=== PATIENT | male | born 1945 | race Caucasian/White ===

== ENCOUNTER 2019-01-13 20:14 | Emergency (ER) | payer MEDICARE, BC, OTHER ==
[2019-01-13] MEDS ORDERED: Acetaminophen/HYDROcodone 325-5 MG Tab PO ONE (21:28)
[2019-01-13] MEDS ORDERED: Sodium Chloride 0.9% 10 ML Syringe FLUSH PRN (21:28)
[2019-01-13] MEDS ORDERED: Sodium Chloride 0.9% 2.5 ML Syringe FLUSH PRN (21:28)
--- NOTE | 2019-01-13 21:33 | EDM.PDOC ---
ED HPI GENERAL MEDICAL PROBLEM - General Chief Complaint: General Stated Complaint: BOIL ON TESTICLES Time Seen by Provider: 01/13/19 21:09 - History of Present Illness INITIAL COMMENTS - FREE TEXT/NARRATIVE: HISTORY AND PHYSICAL: History of present illness: The patient is a 73-year-old male with a history of oxygen dependent COPD insulin requiring diabetes hyperlipidemia who follows at the [place] [facility] and presents with a swollen area/boil underneath his testicles that is been there for the last 2 weeks. It is not had any drainage and he and the are concerned because it seems to be more painful. They contacted the [place] [facility] who said that he should come here for evaluation. He has had no change in his other systemic issues and has no abdominal pain no testicular pain or swelling no urinary issues no bowel disturbances and no abdominal complaints. He said no fevers chills chest pain or new shortness of breath. He has not noticed any drainage from the area. The patient is incontinent and normally wears a diaper and said that she has noticed some dark blood in the diaper but it is not near the area of the swollen mass on underneath the testicles. She is not sure where the blood is coming from. Review of systems: As per history of present illness and below otherwise all systems reviewed and negative. Past medical history: As per history of present illness and as reviewed below otherwise noncontributory. Surgical history: As per history of present illness and as reviewed below otherwise noncontributory. Social history: No reported history of drug or alcohol abuse. Family history: As per history of present illness and as reviewed below otherwise noncontributory. Physical exam: General: Well-developed well-nourished overweight man who is nontoxic and currently on oxygen therapy for his norm. He is not breathless with movement and is in no overt distress. HEENT: Atraumatic, normocephalic, pupils reactive, negative for conjunctival pallor or scleral icterus, mucous membranes moist, throat clear, neck supple, nontender, trachea midline. Lungs: Diminished breath sounds throughout all durand but no worker breathing wheezing or stridor, breath sounds equal bilaterally, chest nontender. Heart: S1S2, regular rate and rhythm and no overt murmurs Abdomen: Soft, nondistended, nontender. Negative for masses or hepatosplenomegaly. Negative for costovertebral tenderness. Pelvis: Stable nontender. Genitourinary: Is no evidence of any suprapubic tenderness or inguinal area adenopathy and there are no soft tissue lesions appreciated. The patient has bilaterally descended testicles which are not painful or swollen to palpation. There are no lesions seen in this region. Underneath the testicles and the scrotal sac there is an oval golfball size hardened indurated area appreciated without any fluctuance or drainage. There is no surrounding erythema and there is no crepitus appreciated in the perineal region. There is no erythema or other lesions appreciated. The skin of the buttocks bilaterally have multiple chronic skin changes and there is early breakdown at the sacrum. There is some dark and blood appreciated in the superior aspect of the patient's diaper but there is no source for this that I can appreciate. Recta there is some brown stool at the perianal area which is Hemoccult negative and tone is normal. There is no discomfort fluctuance or swelling in the perianal areal- Extremities: Atraumatic, negative for cords or calf pain. Neurovascular unremarkable.There is trace pedal edema bilaterally. The patient has full range of motion without defects or deficits Neuro: Awake, alert, oriented. Cranial nerves II through XII unremarkable. Cerebellum unremarkable. Motor and sensory unremarkable throughout. Exam nonfocal. Diagnostics: Accu-Chek CBC CMP lactic acid blood cultures UA Therapeutics: [place] Patient says the pain is much improved after the [place] 5/325. I discussed this case with Dr. Contreras [id number] and he does not want me to do any imaging here in light of the fact that the labs are normal and there is no clinical evidence of any infection or abscess. He will see the patient in his clinic tomorrow at 1 PM Impression: Scrotal/perineal mass etiology unclear Definitive disposition and diagnosis as appropriate pending reevaluation and review of above. Scrotum Pain Score (Numeric/FACES): 8 - Related Data Allergies Allergy/AdvReac Type Severity Reaction Status Date / Time coconut Allergy Anaphylactic Verified 01/13/19 21:01 Shock orange Allergy Anaphylactic Verified 01/13/19 21:01 Shock Home Meds: Home Meds Albuterol Sulfate [Proair Hfa] 2 puff PO Q4H PRN 11/05/14 [History] Albuterol [Proventil Neb Soln] 3 ml PO Q4H PRN 11/05/14 [History] Calcium Carb & Citrate/Vit D3 [Calcium + Vitamin D3 Caplet] 2 tab PO DAILY 11/05 [History] Metoprolol Tartrate 50 mg PO BID 11/05/14 [History] Simvastatin [Zocor] 40 mg PO BEDTIME 11/05/14 [History] Aspirin [Halfprin] 81 mg PO BID 07/21/15 [History] Clotrimazole [Clotrimazole 1%] 1 applic TOP BID 07/21/15 [History] Folic Acid 0.8 mg PO DAILY 07/21/15 [History] Budesonide/Formoterol [Symbicort 160-4.5 MCG] 2 puff IH BID 08/11/15 [History] Insulin Isophane NPH, Human [NovoLIN N] 25 unit SUBCUT QAM 03/06/16 [History] Insulin Isophane NPH, Human [NovoLIN N] 50 unit SUBCUT QPM 03/06/16 [History] Leflunomide 20 mg PO DAILY 03/06/16 [History] Tiotropium [Spiriva HandiHaler] 18 mcg IH DAILY 03/06/16 [History] oxyCODONE 10 mg PO Q6H PRN 03/06/16 [History] predniSONE 7.5 mg PO DAILY 03/06/16 [History] Collagenase Clostridium Hist. [Santyl] 0 gm TOP DAILY 07/06/16 [History] Furosemide [Lasix] 20 mg PO BIDDIURETIC #14 tablet 07/06/16 [Rx] Insulin Regular, Human [NovoLIN R] 10 units SQ TIDAC 07/06/16 [History] Potassium Chloride 20 meq PO BID #14 tablet.er 07/06/16 [Rx] oxyCODONE HCl [Oxycodone HCl] 15 mg PO Q6H 07/06/16 [History] risperiDONE 1 mg PO BID 07/06/16 [History] sulfaSALAzine [sulfaSALAzine DR] 500 mg PO BEDTIME 07/06/16 [History] levoFLOXacin [Levaquin] 500 mg PO DAILY #7 tab 08/19/18 [Rx] Past Medical History HEENT History: Reports: Hard of Hearing, Impaired Vision, Other (See Below) Other HEENT History: Uses bilateral hearing aids Cardiovascular History: Reports: High Cholesterol, Hypertension, SOB on Exertion Respiratory History: Reports: COPD, Pneumonia, Recurrent, SOB, Other (See Below) Other Respiratory History: Oxygen dependant at home Gastrointestinal History: Reports: None Genitourinary History: Reports: Urinary Incontinence Other Genitourinary History: New onset Musculoskeletal History: Reports: Back Pain, Chronic Neurological History: Reports: None Psychiatric History: Reports: None Endocrine/Metabolic History: Reports: Diabetes, Type II Hematologic History: Reports: None Immunologic History: Reports: None Oncologic (Cancer) History: Reports: None Dermatologic History: Reports: Other (See Below) Other Dermatologic History: Redness noted to the groin area. - Infectious Disease History Infectious Disease History: Reports: Chicken Pox, Hepatitis A, Measles, Mumps - Past Surgical History Head Surgeries/Procedures: Reports: None Musculoskeletal Surgical History: Reports: Knee Replacement, Other (See Below) Social & Family History - Family History Family Medical History: Noncontributory Cardiac: Reports: [place] Oncologic: Reports: Other (See Below) Other Oncologic Family History: cant remember whatb type of cancer - Tobacco Use Smoking Status *Q: Former Smoker Years of Tobacco use: 20 Used Tobacco, but Quit: Yes Month/Year Tobacco Last Used: 30 - Caffeine Use Caffeine Use: Reports: Coffee - Recreational Drug Use Recreational Drug Use: No ED ROS GENERAL - Review of Systems Review Of Systems: ROS reveals no pertinent complaints other than HPI. ED EXAM, GENERAL - Physical Exam Exam: See Below (See dictation) Course - Vital Signs Last Recorded V/S: Last Vital Signs Temp 36.1 C 01/13/19 21:02 Pulse 60 01/13/19 21:02 Resp 16 01/13/19 21:02 BP 132/58 L 01/13/19 21:02 Pulse Ox 94 L 01/13/19 21:02 - Orders/Labs/Meds Orders: Active Orders 24 hr Category Date Time Status Blood Glucose Check, Bedside [RC] ONETIME Care 01/13/19 21:27 Active CULTURE BLOOD [BC] Stat Lab 01/13/19 21:44 Received CULTURE BLOOD [BC] Stat Lab 01/13/19 21:44 Received Sodium Chloride 0.9% [Saline Flush] Med 01/13/19 21:28 Active 10 ml FLUSH ASDIRECTED PRN Sodium Chloride 0.9% [Saline Flush] Med 01/13/19 21:28 Active 2.5 ml FLUSH ASDIRECTED PRN Blood Culture x2 Reflex Set [OM.PC] Stat Oth 01/13/19 21:29 Ordered Saline Lock Insert [OM.PC] Stat Ot 01/13/19 21:27 Ordered Medication Orders Sodium Chloride (Saline Flush) 10 ml FLUSH ASDIRECTED PRN PRN Reason: Keep Vein Open Sodium Chloride (Saline Flush) 2.5 ml FLUSH ASDIRECTED PRN PRN Reason: Keep Vein Open Labs: Laboratory Tests 01/13/19 01/13/19 01/13/19 Range/Units 21:44 21:44 21:44 WBC 8.03 (4.0-11.0) K/uL RBC 3.53 L (4.50-5.90) M/uL Hgb 12.0 L (13.0-17.0) g/dL Hct 38.5 (38.0-50.0) % MCV 109.1 H (80.0-98.0) fL MCH 34.0 H (27.0-32.0) pg MCHC 31.2 (31.0-37.0) g/dL RDW Std Deviation 59.3 (28.0-62.0) fl RDW Coeff of Mesha 15 (11.0-15.0) % Plt Count 113 L (150-400) K/uL MPV 11.00 (7.40-12.00) fL Neut % (Auto) 69.9 (48.0-80.0) % Lymph % (Auto) 14.3 L (16.0-40.0) % Graham % (Auto) 14.1 (0.0-15.0) % Eos % (Auto) 1.6 (0.0-7.0) % Baso % (Auto) 0.1 (0.0-1.5) % Neut # (Auto) 5.6 (1.4-5.7) K/uL Lymph # (Auto) 1.2 (0.6-2.4) K/uL Graham # (Auto) 1.1 H (0.0-0.8) K/uL Eos # (Auto) 0.1 (0.0-0.7) K/uL Baso # (Auto) 0.0 (0.0-0.1) K/uL Nucleated RBC % 0.0 /100WBC Nucleated RBCs # 0 K/uL Lactate 0.6 (0.20-2.00) mmol/L Sodium 140 (136-148) mmol/L Potassium 4.3 (3.5-5.1) mmol/L Chloride 100 (98-107) mmol/L Carbon Dioxide 37.1 H (21.0-32.0) mmol/L BUN 8 (7.0-18.0) mg/dL Creatinine 0.8 (0.8-1.3) mg/dL Est Cr Clr Drug Dosing 99.76 mL/min Estimated GFR (MDRD) > 60.0 ml/min Glucose 98 (74-106) mg/dL Calcium 9.4 (8.5-10.1) mg/dL Total Bilirubin 0.4 (0.2-1.0) mg/dL AST 29 (15-37) IU/L ALT 21 (14-63) IU/L Alkaline Phosphatase 46 (46-116) U/L Total Protein 6.6 (6.4-8.2) g/dL Albumin 2.9 L (3.4-5.0) g/dL Globulin 3.7 (2.6-4.0) g/dL Albumin/Globulin Ratio 0.8 L (0.9-1.6) Urine Color Urine Appearance Urine pH (5.0-8.0) Ur Specific Solomon (1.001-1.035) Urine Protein (NEGATIVE) mg/dL Urine Glucose (UA) (NEGATIVE) mg/dL Urine Ketones (NEGATIVE) mg/dL Urine Occult Blood (NEGATIVE) Urine Nitrite (NEGATIVE) Urine Bilirubin (NEGATIVE) Urine Urobilinogen (<2.0) EU/dL Ur Leukocyte Esterase (NEGATIVE) 01/13/19 Range/Units 22:29 WBC (4.0-11.0) K/uL RBC (4.50-5.90) M/uL Hgb (13.0-17.0) g/dL Hct (38.0-50.0) % MCV (80.0-98.0) fL MCH (27.0-32.0) pg MCHC (31.0-37.0) g/dL RDW Std Deviation (28.0-62.0) fl RDW Coeff of Mesha (11.0-15.0) % Plt Count (150-400) K/uL MPV (7.40-12.00) fL Neut % (Auto) (48.0-80.0) % Lymph % (Auto) (16.0-40.0) % Graham % (Auto) (0.0-15.0) % Eos % (Auto) (0.0-7.0) % Baso % (Auto) (0.0-1.5) % Neut # (Auto) (1.4-5.7) K/uL Lymph # (Auto) (0.6-2.4) K/uL Graham # (Auto) (0.0-0.8) K/uL Eos # (Auto) (0.0-0.7) K/uL Baso # (Auto) (0.0-0.1) K/uL Nucleated RBC % /100WBC Nucleated RBCs # K/uL Lactate (0.20-2.00) mmol/L Sodium (136-148) mmol/L Potassium (3.5-5.1) mmol/L Chloride (98-107) mmol/L Carbon Dioxide (21.0-32.0) mmol/L BUN (7.0-18.0) mg/dL Creatinine (0.8-1.3) mg/dL Est Cr Clr Drug Dosing mL/min Estimated GFR (MDRD) ml/min Glucose (74-106) mg/dL Calcium (8.5-10.1) mg/dL Total Bilirubin (0.2-1.0) mg/dL AST (15-37) IU/L ALT (14-63) IU/L Alkaline Phosphatase (46-116) U/L Total Protein (6.4-8.2) g/dL Albumin (3.4-5.0) g/dL Globulin (2.6-4.0) g/dL Albumin/Globulin Ratio (0.9-1.6) Urine Color YELLOW Urine Appearance CLEAR Urine pH 5.5 (5.0-8.0) Ur Specific Solomon <= 1.005 (1.001-1.035) Urine Protein NEGATIVE (NEGATIVE) mg/dL Urine Glucose (UA) NEGATIVE (NEGATIVE) mg/dL Urine Ketones NEGATIVE (NEGATIVE) mg/dL Urine Occult Blood NEGATIVE (NEGATIVE) Urine Nitrite NEGATIVE (NEGATIVE) Urine Bilirubin NEGATIVE (NEGATIVE) Urine Urobilinogen 0.2 (<2.0) EU/dL Ur Leukocyte Esterase NEGATIVE (NEGATIVE) Meds: Medications Generic Name Dose Route Start Last Admin Trade Name Freq PRN Reason Stop Dose Admin Sodium Chloride 10 ml 01/13/19 21:28 Saline Flush FLUSH ASDIRECTED PRN Keep Vein Open Sodium Chloride 2.5 ml 01/13/19 21:28 Saline Flush FLUSH ASDIRECTED PRN Keep Vein Open Discontinued Medications Generic Name Dose Route Start Last Admin Trade Name Freq PRN Reason Stop Dose Admin Hydrocodone Bitart/Acetaminophen 1 tab 01/13/19 21:28 01/13/19 22:05 [place] 325-5 Mg PO 01/13/19 21:29 1 tab ONETIME ONE Administration Departure - Departure Time of Disposition: 23:09 Disposition: Home, Self-Care 01 Condition: Good Clinical Impression: Scrotal mass - Discharge Information Forms: ED Department Discharge Additional Instructions: The following information is given to patients seen in the emergency department who are being discharged to home. This information is to outline your options for follow-up care. We provide all patients seen in our emergency department with a follow-up referral. The need for follow-up, as well as the timing and circumstances, are variable depending upon the specifics of your emergency department visit. If you don't have a primary care physician on staff, we will provide you with a referral. We always advise you to contact your personal physician following an emergency department visit to inform them of the circumstance of the visit and for follow-up with them and/or the need for any referrals to a consulting specialist. The emergency department will also refer you to a specialist when appropriate. This referral assures that you have the opportunity for followup care with a specialist. All of these measure are taken in an effort to provide you with optimal care, which includes your followup. Under all circumstances we always encourage you to contact your private physician who remains a resource for coordinating your care. When calling for followup care, please make the office aware that this follow-up is from your recent emergency room visit. If for any reason you are refused follow-up, please contact the [facility] emergency department at and ask to speak to the emergency department charge nurse. [facility] [address] [place], [place] [id number] Please continue all your home medications. Please go and see Dr. Contreras our urologist at 1 PM tomorrow in his clinic. Return to ER as needed and as discussed - My Orders Last 24 Hours: My Active Orders 01/13/19 21:27 Blood Glucose Check, Bedside [RC] ONETIME Saline Lock Insert [OM.PC] Stat 01/13/19 21:28 Sodium Chloride 0.9% [Saline Flush] 10 ml FLUSH ASDIRECTED PRN Sodium Chloride 0.9% [Saline Flush] 2.5 ml FLUSH ASDIRECTED PRN 01/13/19 21:29 Blood Culture x2 Reflex Set [OM.PC] Stat 01/13/19 21:44 CULTURE BLOOD [BC] Stat CULTURE BLOOD [BC] Stat - Assessment/Plan Last 24 Hours: My Active Orders 01/13/19 21:27 Blood Glucose Check, Bedside [RC] ONETIME Saline Lock Insert [OM.PC] Stat 01/13/19 21:28 Sodium Chloride 0.9% [Saline Flush] 10 ml FLUSH ASDIRECTED PRN Sodium Chloride 0.9% [Saline Flush] 2.5 ml FLUSH ASDIRECTED PRN 01/13/19 21:29 Blood Culture x2 Reflex Set [OM.PC] Stat 01/13/19 21:44 CULTURE BLOOD [BC] Stat CULTURE BLOOD [BC] Stat
[2019-01-13 22:29] LABS: CHLORIDE,CL 100 mmol/L (98-107); SODIUM,NA 140 mmol/L (136-148)
[2019-01-13 23:27] VITALS: BP 120/56
== END 2019-01-13 23:27 | disposition home or self-care (01) ==
LOC: MW.ED 20:14
DX: N50.9 Disorder of male genital organs, unspecified (principal); E78.00 Pure hypercholesterolemia, unspecified; I10 Essential (primary) hypertension; E11.9 Type 2 diabetes mellitus without complications; Z79.899 Other long term (current) drug therapy; Z87.891 Personal history of nicotine dependence; Z79.4 Long term (current) use of insulin
CPT/HCPCS: 36415; 80053; 81003; 83605; 85025; 87040; 99284; A9270

== ENCOUNTER 2019-06-17 08:13 | Emergency (ER) | payer MEDICARE, BC ==
--- NOTE | 2019-06-17 08:22 | EDM.PDOC ---
ED HPI GENERAL MEDICAL PROBLEM - General Stated Complaint: FALL Time Seen by Provider: 06/17/19 08:16 - History of Present Illness INITIAL COMMENTS - FREE TEXT/NARRATIVE: HISTORY AND PHYSICAL: History of present illness: Patient 74-year-old male history of hypertension COPD diabetes who is a resident at a local jail who presents status post fall which she 1's first out of his recliner sustaining a small laceration was frontal scalp there is no loss consciousness he complains of right arm pain in addition to the laceration. He denies any chest or abdominal pain or trauma or other concern. Review of systems: As per history of present illness and below otherwise all systems reviewed and negative. Past medical history: As per history of present illness and as reviewed below otherwise noncontributory. Surgical history: As per history of present illness and as reviewed below otherwise noncontributory. Social history: No reported history of drug or alcohol abuse. Family history: As per history of present illness and as reviewed below otherwise noncontributory. Physical exam: HEENT: Patient has approximately 1.5 cm moderate the laceration with good hemostasis to the left frontal scalp is no step-off no depression, normocephalic , pupils reactive, negative for conjunctival pallor or scleral icterus, mucous membranes moist, throat clear, neck supple, nontender, trachea midline. Lungs: Diminished, breath sounds equal bilaterally, chest nontender. Heart: S1S2, regular, negative for clicks, rubs, or JVD. Abdomen: Soft, nondistended, nontender. Negative for masses or hepatosplenomegaly. Negative for costovertebral tenderness. Pelvis: Stable nontender. Genitourinary: Deferred. Rectal: Deferred. Extremities: Atraumatic, negative for cords or calf pain. Neurovascular unremarkable. Mild tenderness to his proximal right humerus with no crepitation neurovascular exam CMS is unremarkable Neuro: Awake, alert, oriented. Patient follows commands and moves all extremities limited but grossly nonfocal exam Diagnostics: CT brain cervical spine x-ray right humerus and pelvis Therapeutics: Wound was cleansed with copious amounts of 0.9 normal saline closed with Steri- Strips Impression: #1 observation status post fall #2 head injury with scalp laceration #3 right upper extremity injury for medical screening exam Definitive disposition and diagnosis as appropriate pending reevaluation and review of above. right arm Pain Score (Numeric/FACES): 6 - Related Data Allergies Allergy/AdvReac Type Severity Reaction Status Date / Time coconut Allergy Anaphylactic Verified 06/17/19 09:09 Shock orange Allergy Anaphylactic Verified 06/17/19 09:09 Shock Home Meds: Home Meds Albuterol Sulfate [Proair Hfa] 2 puff PO Q4H PRN 11/05/14 [History] Albuterol [Proventil Neb Soln] 3 ml PO Q4H PRN 11/05/14 [History] Calcium Carb & Citrate/Vit D3 [Calcium + Vitamin D3 Caplet] 2 tab PO DAILY 11/05 [History] Metoprolol Tartrate 50 mg PO BID 11/05/14 [History] Simvastatin [Zocor] 40 mg PO BEDTIME 11/05/14 [History] Aspirin [Halfprin] 81 mg PO BID 07/21/15 [History] Clotrimazole [Clotrimazole 1%] 1 applic TOP BID 07/21/15 [History] Folic Acid 0.8 mg PO DAILY 07/21/15 [History] Budesonide/Formoterol [Symbicort 160-4.5 MCG] 2 puff IH BID 08/11/15 [History] Insulin Isophane NPH, Human [NovoLIN N] 25 unit SUBCUT QAM 03/06/16 [History] Insulin Isophane NPH, Human [NovoLIN N] 50 unit SUBCUT QPM 03/06/16 [History] Leflunomide 20 mg PO DAILY 03/06/16 [History] Tiotropium [Spiriva HandiHaler] 18 mcg IH DAILY 03/06/16 [History] oxyCODONE 10 mg PO Q6H PRN 03/06/16 [History] predniSONE 7.5 mg PO DAILY 03/06/16 [History] Collagenase Clostridium Hist. [Santyl] 0 gm TOP DAILY 07/06/16 [History] Furosemide [Lasix] 20 mg PO BIDDIURETIC #14 tablet 07/06/16 [Rx] Insulin Regular, Human [NovoLIN R] 10 units SQ TIDAC 07/06/16 [History] Potassium Chloride 20 meq PO BID #14 tablet.er 07/06/16 [Rx] oxyCODONE HCl [Oxycodone HCl] 15 mg PO Q6H 09/23/16 [History] risperiDONE 1 mg PO BID 07/06/16 [History] sulfaSALAzine [sulfaSALAzine DR] 500 mg PO BEDTIME 07/06/16 [History] levoFLOXacin [Levaquin] 500 mg PO DAILY #7 tab 08/19/18 [Rx] Past Medical History HEENT History: Reports: Hard of Hearing, Impaired Vision, Other (See Below) Other HEENT History: Uses bilateral hearing aids Cardiovascular History: Reports: High Cholesterol, Hypertension, SOB on Exertion Respiratory History: Reports: COPD, Pneumonia, Recurrent, SOB, Other (See Below) Other Respiratory History: Oxygen dependant at home Gastrointestinal History: Reports: None Genitourinary History: Reports: Urinary Incontinence Other Genitourinary History: New onset Musculoskeletal History: Reports: Back Pain, Chronic Neurological History: Reports: None Psychiatric History: Reports: None Endocrine/Metabolic History: Reports: Diabetes, Type II Hematologic History: Reports: None Immunologic History: Reports: None Oncologic (Cancer) History: Reports: None Dermatologic History: Reports: Other (See Below) Other Dermatologic History: Redness noted to the groin area. - Infectious Disease History Infectious Disease History: Reports: Chicken Pox, Hepatitis A, Measles, Mumps - Past Surgical History Head Surgeries/Procedures: Reports: None Musculoskeletal Surgical History: Reports: Knee Replacement, Other (See Below) Social & Family History - Family History Family Medical History: Noncontributory Cardiac: Reports: [place] Oncologic: Reports: Other (See Below) Other Oncologic Family History: cant remember whatb type of cancer - Caffeine Use Caffeine Use: Reports: Coffee ED ROS GENERAL - Review of Systems Review Of Systems: ROS reveals no pertinent complaints other than HPI. ED EXAM, GENERAL - Physical Exam Exam: See Below (See dictation) Course - Vital Signs Last Recorded V/S: Last Vital Signs Temp 36.1 C 06/17/19 08:13 Pulse 65 06/17/19 08:13 Resp 18 06/17/19 08:13 BP 145/66 H 06/17/19 08:13 Pulse Ox 97 06/17/19 08:13 - Orders/Labs/Meds Orders: Active Orders 24 hr Category Date Time Status Admission Status [Patient Status] [ADT] Stat ADT 06/17/19 09:04 Active Departure - Departure Time of Disposition: 08:21 Disposition: Home, Self-Care 01 Condition: Good Clinical Impression: Encounter for medical screening examination, Fall, Scalp laceration, Minor head injury - Discharge Information Additional Instructions: The following information is given to patients seen in the emergency department who are being discharged to home. This information is to outline your options for follow-up care. We provide all patients seen in our emergency department with a follow-up referral. The need for follow-up, as well as the timing and circumstances, are variable depending upon the specifics of your emergency department visit. If you don't have a primary care physician on staff, we will provide you with a referral. We always advise you to contact your personal physician following an emergency department visit to inform them of the circumstance of the visit and for follow-up with them and/or the need for any referrals to a consulting specialist. The emergency department will also refer you to a specialist when appropriate. This referral assures that you have the opportunity for followup care with a specialist. All of these measure are taken in an effort to provide you with optimal care, which includes your followup. Under all circumstances we always encourage you to contact your private physician who remains a resource for coordinating your care. When calling for followup care, please make the office aware that this follow-up is from your recent emergency room visit. If for any reason you are refused follow-up, please contact the [facility] emergency department at and asked to speak to the emergency department charge nurse. Follow-up primary medical doctor as needed as discussed return as needed as discussed wound care as directed - My Orders Last 24 Hours: My Active Orders 06/17/19 09:04 Admission Status [Patient Status] [ADT] Stat - Assessment/Plan Last 24 Hours: My Active Orders 06/17/19 09:04 Admission Status [Patient Status] [ADT] Stat
--- NOTE | 2019-06-17 09:05 | CR ---
INDICATION: Trauma. Patient fell. COMPARISON: none TECHNIQUE: Two-view right humerus FINDINGS: The glenohumeral joint and elbow are anatomically aligned. There is no evidence of a humeral fracture, erosion or intrinsic bone lesion. The soft tissues appear normal. IMPRESSION: No fracture identified Dictated by Uriel Fisher MD @ Jun 17 2019 9:02AM Signed by Dr. Uriel Fisher @ Jun 17 2019 9:03AM
--- NOTE | 2019-06-17 09:05 | CR ---
INDICATION: Trauma. Patient fell. TECHNIQUE: AP pelvis. COMPARISON: none FINDINGS: The hips are anatomically aligned. The sacroiliac joints appear normal. There is no evidence of a fracture or intrinsic bone lesion within the pelvis. The soft tissues appear normal. IMPRESSION: No fracture identified. Dictated by Uriel Fisher MD @ Jun 17 2019 8:59AM Signed by Dr. Uriel Fisher @ Jun 17 2019 9:04AM
--- NOTE | 2019-06-17 09:11 | CT ---
INDICATION: Trauma. Patient fell out of chair and struck his face. COMPARISON: Head CT dated 03/06/2016 TECHNIQUE: A CT volumetric acquisition was performed of the brain without IV contrast. FINDINGS: As compared to the prior exam dated 03/06/2016 there is persistent dilatation of the ventricles which appear disproportionate to the size of the cerebral sulci. Again the changes likely reflect normal pressure hydrocephalus. There is no evidence of a subdural or epidural hemorrhage. There is no evidence of subarachnoid bleeding or intraparenchymal hemorrhage. The basal cisterns remain patent. There is no evidence of localized tissue infarction or mass effect. There is normal renae white matter differentiation. Atherosclerotic calcifications are noted within the carotid arteries. The mastoid air cells and middle ear cavities are clear. The calvarium appears intact. There is normal aeration of the visualized paranasal sinuses. IMPRESSION: No evidence of intracranial hemorrhage. 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 Please note that all CT scans at this facility use dose modulation, iterative reconstruction, and/or weight-based dosing when appropriate to reduce radiation dose to as low as reasonably achievable. Dictated by Uriel Fisher MD @ Jun 17 2019 8:59AM Signed by Dr. Uriel Fisher @ Jun 17 2019 9:09AM
--- NOTE | 2019-06-17 09:17 | CT ---
INDICATION: Trauma. Patient fell. TECHNIQUE: A CT volumetric acquisition was performed of the cervical spine without IV contrast. FINDINGS: The cervical vertebra appear anatomically aligned on the sagittal and coronal reformations. There is no evidence of a fracture. Of there is osteoarthritic spurring about the articulation of the odontoid process and anterior arch of C1. There is degenerative disc space narrowing at multiple levels with accompanying hypertrophic spurring about the posterior uncovertebral joints and anterior vertebral margins. These are evident extending from C3 through T1. The facet joints show anatomic alignment with no evidence of fracture or subluxation. There is joint space narrowing and spurring about the C3-4 and C4-5 facets. The posterior elements and spinous processes appear intact. There is no evidence of a paraspinal or epidural hematoma. IMPRESSION: No evidence of a fracture or subluxation within the cervical spine. Underlying multilevel disc degeneration and facet arthropathy. Please note that all CT scans at this facility use dose modulation, iterative reconstruction, and/or weight-based dosing when appropriate to reduce radiation dose to as low as reasonably achievable. Dictated by Uriel Fisher MD @ Jun 17 2019 8:59AM Signed by Dr. Uriel Fisher @ Jun 17 2019 9:16AM
[2019-06-17 11:30] VITALS: BP 106/65
== END 2019-06-17 10:04 | disposition home or self-care (01) ==
LOC: MW.ED 08:13
DX: S01.01XA Laceration without foreign body of scalp, initial encounter (principal); M79.601 Pain in right arm; E11.9 Type 2 diabetes mellitus without complications; J44.9 Chronic obstructive pulmonary disease, unspecified; E78.00 Pure hypercholesterolemia, unspecified; I10 Essential (primary) hypertension; Z91.018 Allergy to other foods; Z79.51 Long term (current) use of inhaled steroids; Z79.82 Long term (current) use of aspirin; Z79.4 Long term (current) use of insulin; W08.XXXA Fall from other furniture, initial encounter
CPT/HCPCS: 70450; 70450-26; 72125; 72125-26; 72170; 72170-26; 73060-26-RT; 73060-RT; 99284; 99284-25

== ENCOUNTER 2019-06-26 16:48 | Emergency (ER) | payer MEDICARE, BC ==
[2019-06-26] MEDS ORDERED: Sodium Chloride 0.9% 2.5 ML Syringe FLUSH PRN ×2 (17:00)
[2019-06-26] MEDS ORDERED: Sodium Chloride 0.9% 10 ML Syringe FLUSH PRN ×2 (17:00)
--- NOTE | 2019-06-26 17:12 | EDM.PDOC ---
ED HPI GENERAL MEDICAL PROBLEM - General Chief Complaint: Respiratory Problem Stated Complaint: RESP. COMPLAINT Time Seen by Provider: 06/26/19 16:56 Source of Information: Reports: EMS History Limitations: Reports: Altered Mental Status, Respiratory Distress - History of Present Illness INITIAL COMMENTS - FREE TEXT/NARRATIVE: History of present illness: []Patient resides at [facility] and has been declining since June 04. Fall on June 17 and hit his head has been on oxycodone for pain as responsiveness. Today Casimiro was unable to increase his oxygenation noting O2 saturations in the mid to low 80s. They were unable to contact his power of deputy prosecuting attorney but his son requested that he be transported to the hospital. Patient was brought by EMS and received a DuoNeb enroute. Patient is DNR/DNI and family does not want any more interventions or admissions. Review of systems: As per history of present illness and below otherwise all systems reviewed and negative. Past medical history: As per history of present illness and as reviewed below otherwise noncontributory. Surgical history: As per history of present illness and as reviewed below otherwise noncontributory. Social history: No reported history of drug or alcohol abuse. Family history: As per history of present illness and as reviewed below otherwise noncontributory. Physical exam: General: Well developed, well nourished in NAD HEENT: Atraumatic, normocephalic, pupils reactive, negative for conjunctival pallor or scleral icterus, mucous membranes moist, throat clear, neck supple, nontender, trachea midline. Lungs: Decreased breath sounds on the right throughout, rhonchi at the bases patient has no respiratory distress Heart: S1S2, regular, negative for clicks, rubs, or JVD. Abdomen: NABS, Soft, nondistended, nontender. Negative for masses or hepatosplenomegaly. Negative for costovertebral tenderness. Pelvis: Stable nontender. Genitourinary: Deferred. Rectal: Deferred. Extremities: Atraumatic, negative for cords or calf pain. Neurovascular unremarkable. Neuro: Awake, alert, oriented. Cranial nerves II through XII unremarkable. Cerebellum unremarkable. Motor and sensory unremarkable throughout. Exam nonfocal. Skin:warm and dry Diagnostics: Chest x-ray shows complete opacification of the right hemithorax with volume loss consistent with complete atelectasis of the right lung CBC, chemistry Therapeutics: Patient was put on BiPAP and Lasix given ED Course: Patient's family did not want patient to be admitted and or transferred. Family wants patient to be sent back to [facility] on comfort measures. Patient's son Ricky lala Jr, who is power of deputy prosecuting attorney and works at [employer], states that he will set up at [facility] for the patient. This was run by [facility] staff who is discussing it with their administration. Impression: Complete right lung atelectasis, hypoxia Prescriptions: None Plan: Return to [facility] Definitive disposition and diagnosis as appropriate pending reevaluation and review of above. Back Pain Score (Numeric/FACES): 8 - Related Data Allergies Allergy/AdvReac Type Severity Reaction Status Date / Time coconut Allergy Anaphylactic Verified 06/17/19 09:09 Shock orange Allergy Anaphylactic Verified 06/17/19 09:09 Shock walnut Allergy Other Verified 06/26/19 17:06 Home Meds: Home Meds Metoprolol Tartrate 50 mg PO BID 11/05/14 [History] Simvastatin [Zocor] 40 mg PO BEDTIME 11/05/14 [History] Aspirin [Halfprin] 81 mg PO BID 07/21/15 [History] Folic Acid 0.8 mg PO DAILY 07/21/15 [History] Budesonide/Formoterol [Symbicort 160-4.5 MCG] 2 puff IH BID 08/11/15 [History] Leflunomide 20 mg PO DAILY 03/06/16 [History] oxyCODONE 7.5 mg PO 5XDAY 03/06/16 [History] predniSONE 7.5 mg PO DAILY 03/06/16 [History] oxyCODONE HCl [Oxycodone HCl] 10 mg PO BEDTIME 07/06/16 [History] risperiDONE 1 mg PO BEDTIME 07/06/16 [History] sulfaSALAzine [sulfaSALAzine DR] 1,000 mg PO BID 07/06/16 [History] Albuterol Sulfate [Albuterol Sulfate Hfa] 2 puff IH Q4H PRN 06/17/19 [History] Albuterol [Proventil Neb Soln] 3 ml IH Q4H PRN 06/17/19 [History] Ammonium Lactate [Renetta-Hydrolac] 1 dressing TP BID 06/17/19 [History] Bisacodyl 10 mg RC Q24H PRN 06/17/19 [History] Calcium Citrate/Vitamin D3 [Calcium Citrate - Vit D3 Tab] 1 each PO BID [History] Cholecalciferol (Vitamin D3) [Vitamin D3] 2,000 unit PO DAILY 06/17/19 [History] Docusate Sodium [Colace] 100 mg PO BID 06/17/19 [History] Furosemide [Lasix] 40 mg PO QAM 06/17/19 [History] Magnesium Hydroxide [Milk of Magnesia] 30 ml PO DAILY PRN 06/17/19 [History] Multivitamin [Daily Multiple Vitamin] 1 each PO DAILY 06/17/19 [History] Naloxone HCl [Narcan] 4 mg NS ASDIRECTED PRN 06/17/19 [History] PARoxetine HCl [Paroxetine HCl] 40 mg PO DAILY 06/17/19 [History] Polyethylene Glycol 3350 [MiraLAX] 17 gm PO BID 06/17/19 [History] Potassium Chloride 20 meq PO DAILY 06/17/19 [History] risperiDONE [Risperidone] 0.5 mg PO QAM 06/17/19 [History] Past Medical History HEENT History: Reports: Hard of Hearing, Impaired Vision, Other (See Below) Other HEENT History: Uses bilateral hearing aids Cardiovascular History: Reports: High Cholesterol, Hypertension, SOB on Exertion Respiratory History: Reports: COPD, Pneumonia, Recurrent, SOB, Other (See Below) Other Respiratory History: Oxygen dependant at home Gastrointestinal History: Reports: None Genitourinary History: Reports: Urinary Incontinence Other Genitourinary History: New onset Musculoskeletal History: Reports: Back Pain, Chronic Neurological History: Reports: None Psychiatric History: Reports: None Endocrine/Metabolic History: Reports: Diabetes, Type II Hematologic History: Reports: None Immunologic History: Reports: None Oncologic (Cancer) History: Reports: None Dermatologic History: Reports: Other (See Below) Other Dermatologic History: Redness noted to the groin area. - Infectious Disease History Infectious Disease History: Reports: Chicken Pox, Hepatitis A, Measles, Mumps - Past Surgical History Head Surgeries/Procedures: Reports: None Musculoskeletal Surgical History: Reports: Knee Replacement, Other (See Below) Social & Family History - Family History Family Medical History: Noncontributory Cardiac: Reports: SD Oncologic: Reports: Other (See Below) Other Oncologic Family History: cant remember whatb type of cancer - Caffeine Use Caffeine Use: Reports: Coffee ED ROS GENERAL - Review of Systems Review Of Systems: See Below ED EXAM, GENERAL - Physical Exam Exam: See Below Course - Vital Signs Last Recorded V/S: Last Vital Signs Temp 96.0 F 06/26/19 17:02 Pulse 63 06/26/19 19:15 Resp 20 06/26/19 19:15 BP 136/68 06/26/19 19:15 Pulse Ox 87 L 06/26/19 19:15 - Orders/Labs/Meds Orders: Active Orders 24 hr Category Date Time Status RT BiPAP/CPAP [RC] ASDIRECTED Care 06/26/19 17:00 Active Saline Lock Insert [OM.PC] Stat Oth 06/26/19 17:00 Ordered Saline Lock Insert [OM.PC] Stat Oth 06/26/19 17:00 Ordered Labs: Laboratory Tests 06/26/19 06/26/19 06/26/19 Range/Units 17:00 17:00 17:30 WBC 9.58 (4.0-11.0) K/uL RBC 4.01 L (4.50-5.90) M/uL Hgb 13.4 (13.0-17.0) g/dL Hct 45.1 (38.0-50.0) % MCV 112.5 H (80.0-98.0) fL MCH 33.4 H (27.0-32.0) pg MCHC 29.7 L (31.0-37.0) g/dL RDW Std Deviation 65.7 H (28.0-62.0) fl RDW Coeff of Mesha 16 H (11.0-15.0) % Plt Count 138 L (150-400) K/uL MPV 10.90 (7.40-12.00) fL Neut % (Auto) 89.5 H (48.0-80.0) % Lymph % (Auto) 4.5 L (16.0-40.0) % Howell % (Auto) 5.6 (0.0-15.0) % Eos % (Auto) 0.2 (0.0-7.0) % Baso % (Auto) 0.2 (0.0-1.5) % Neut # (Auto) 8.6 H (1.4-5.7) K/uL Lymph # (Auto) 0.4 L (0.6-2.4) K/uL Howell # (Auto) 0.5 (0.0-0.8) K/uL Eos # (Auto) 0.0 (0.0-0.7) K/uL Baso # (Auto) 0.0 (0.0-0.1) K/uL Nucleated RBC % 0.4 /100WBC Nucleated RBCs # 0 K/uL Sodium 136 (136-148) mmol/L Potassium 5.1 (3.5-5.1) mmol/L Chloride 93 L (98-107) mmol/L Carbon Dioxide 44.2 H (21.0-32.0) mmol/L BUN 13 (7.0-18.0) mg/dL Creatinine 1.0 (0.8-1.3) mg/dL Est Cr Clr Drug Dosing 76.49 mL/min Estimated GFR (MDRD) > 60.0 ml/min Glucose 330 H (74-106) mg/dL Calcium 9.8 (8.5-10.1) mg/dL Total Bilirubin 0.3 (0.2-1.0) mg/dL AST 21 (15-37) IU/L ALT 14 (14-63) IU/L Alkaline Phosphatase 90 (46-116) U/L Total Protein 7.3 (6.4-8.2) g/dL Albumin 2.8 L (3.4-5.0) g/dL Globulin 4.5 H (2.6-4.0) g/dL Albumin/Globulin Ratio 0.6 L (0.9-1.6) Urine Color YELLOW Urine Appearance CLEAR Urine pH 5.5 (5.0-8.0) Ur Specific [place] 1.020 (1.001-1.035) Urine Protein NEGATIVE (NEGATIVE) mg/dL Urine Glucose (UA) 500 H (NEGATIVE) mg/dL Urine Ketones NEGATIVE (NEGATIVE) mg/dL Urine Occult Blood NEGATIVE (NEGATIVE) Urine Nitrite NEGATIVE (NEGATIVE) Urine Bilirubin NEGATIVE (NEGATIVE) Urine Urobilinogen 0.2 (<2.0) EU/dL Ur Leukocyte Esterase NEGATIVE (NEGATIVE) Meds: Medications Discontinued Medications Generic Name Dose Route Start Last Admin Trade Name Freq PRN Reason Stop Dose Admin Furosemide 20 mg 06/26/19 17:36 06/26/19 17:40 Lasix IVPUSH 06/26/19 17:37 20 mg NOW ONE Administration Furosemide Confirm 06/26/19 17:35 06/26/19 17:41 Lasix Administered 06/26/19 17:36 Not Given Dose 40 mg .ROUTE .STK-MED ONE Sodium Chloride 10 ml 06/26/19 17:00 Saline Flush FLUSH ASDIRECTED PRN Keep Vein Open Sodium Chloride 2.5 ml 06/26/19 17:00 Saline Flush FLUSH ASDIRECTED PRN Keep Vein Open Sodium Chloride 10 ml 06/26/19 17:00 Saline Flush FLUSH ASDIRECTED PRN Keep Vein Open Sodium Chloride 2.5 ml 06/26/19 17:00 Saline Flush FLUSH ASDIRECTED PRN Keep Vein Open Departure - Departure Time of Disposition: 19:45 Disposition: DC/[facility] Condition: Critical Clinical Impression: Hypoxia, Atelectasis of right lung - Discharge Information *PRESCRIPTION DRUG MONITORING PROGRAM REVIEWED*: Not Applicable *COPY OF PRESCRIPTION DRUG MONITORING REPORT IN PATIENT NAVJOT: Not Applicable Instructions: Acute Respiratory Distress Syndrome, Adult, Atelectasis, Adult Referrals: PCP,Unknown [Primary Care Provider] - Forms: ED Department Discharge Additional Instructions: The following information is given to patients seen in the emergency department who are being discharged to home. This information is to outline your options for follow-up care. We provide all patients seen in our emergency department with a follow-up referral. The need for follow-up, as well as the timing and circumstances, are variable depending upon the specifics of your emergency department visit. If you don't have a primary care physician on staff, we will provide you with a referral. We always advise you to contact your personal physician following an emergency department visit to inform them of the circumstance of the visit and for follow-up with them and/or the need for any referrals to a consulting specialist. The emergency department will also refer you to a specialist when appropriate. This referral assures that you have the opportunity for follow-up care with a specialist. All of these measure are taken in an effort to provide you with optimal care, which includes your follow-up. Under all circumstances we always encourage you to contact your private physician who remains a resource for coordinating your care. When calling for follow-up care, please make the office aware that this follow-up is from your recent emergency room visit. If for any reason you are refused follow-up, please contact the [facility] Emergency Department at and asked to speak to the emergency department charge nurse. [facility] [address] [place] [id number] - My Orders Last 24 Hours: My Active Orders 06/26/19 17:00 RT BiPAP/CPAP [RC] ASDIRECTED Saline Lock Insert [OM.PC] Stat Saline Lock Insert [OM.PC] Stat - Assessment/Plan Last 24 Hours: My Active Orders 06/26/19 17:00 RT BiPAP/CPAP [RC] ASDIRECTED Saline Lock Insert [OM.PC] Stat Saline Lock Insert [OM.PC] Stat
[2019-06-26] MEDS ORDERED: Furosemide 40 MG/4 ML VIAL ONE (17:35)
[2019-06-26] MEDS ORDERED: Furosemide 40 MG/4 ML VIAL IVPUSH ONE (17:36)
[2019-06-26 17:37] LABS: BLOOD UREA NITROGEN,BUN 13 mg/dL (7.0-18.0); CARBON DIOXIDE,CO2 44.2 mmol/L (21.0-32.0); CHLORIDE,CL 93 mmol/L (98-107); GLUCOSE RANDOM 330 mg/dL (74-106); POTASSIUM,K 5.1 mmol/L (3.5-5.1); SODIUM,NA 136 mmol/L (136-148)
--- NOTE | 2019-06-26 17:40 | CR ---
INDICATION: SOB. Gurgling. TECHNIQUE: Upright portable AP image of the chest. COMPARISON: 09/23/2018. FINDINGS: Complete opacification of the right hemithorax with volume loss, consistent with complete atelectasis of the right lung. Left lung clear. Pleural scarring at the left base. Heart size not obviously changed. Pulmonary veins normal in caliber. No significant bony abnormality. IMPRESSION : Complete right lung atelectasis. Dictated by Julio César Lay MD @ Jun 26 2019 5:35PM Signed by Dr. Julio César Lay @ Jun 26 2019 5:39PM
[2019-06-26 19:47] VITALS: BP 136/68; PULSE 63
== END 2019-06-26 19:45 ==
LOC: MW.ED 16:48
DX: J98.11 Atelectasis (principal); I10 Essential (primary) hypertension; E78.00 Pure hypercholesterolemia, unspecified; J44.9 Chronic obstructive pulmonary disease, unspecified; E11.9 Type 2 diabetes mellitus without complications; Z91.018 Allergy to other foods; Z79.82 Long term (current) use of aspirin; Z79.899 Other long term (current) drug therapy
CPT/HCPCS: 36415; 71045; 80053; 81003; 85025; 94660; 96374; 99285; J1940